=== PATIENT | female | born 1955 | race Caucasian/White ===

== ENCOUNTER 2016-12-07 11:53 | Emergency (ER) | payer BC ==
[~2016-12-07] VITALS: Ht 170.2 cm; Wt 89.0 kg
[2016-12-07 11:58] VITALS: BP 189/102; PULSE 107; RESP 18; TEMP 97.9; O2SAT 95
[2016-12-07 12:01] VITALS: BP 155/113; PULSE 106; RESP 17; TEMP 97.7; O2SAT 98
[2016-12-07] MEDS ORDERED: SODIUM CHLOR 0.9% 1000 ML INJ 1,000 ML IV ONE ×2 (12:09→13:45)
[2016-12-07 12:11] VITALS: RESP 17; O2SAT 98
[2016-12-07] MEDS ORDERED: MECLIZINE HCL 25 MG TAB PO ONE ×2 (12:15→14:00)
[2016-12-07] MEDS ORDERED: ONDANSETRON HCL 4 MG/2 ML VIAL IVP ONE (12:15)
[2016-12-07] MEDS ORDERED: SODIUM CHLORIDE 0.9% FLUSH 10 ML FLUSH IVF PRN (12:15)
--- NOTE | 2016-12-07 12:16 | PD ---
HPI Chief Complaint: GI Complaint Time Seen by Provider: 12:03 Travel History International Travel<30 days: No Contact w/Intl Traveler<30days: No Traveled to known affect area: No History of Present Illness HPI 61-year-old female presents to emergency department with 3 day history of sudden onset dizziness with extreme nausea and vomiting and regular without murmur head. Headache pain is currently 5/10. Blood pressure is noted to be somewhat elevated which is unusual for the patient. Patient denies fever , chills, or diarrhea. Patient states she is kept water down today. She has decreased urine output. Feels dehydrated. Patient denies abdominal pain. Patient states her dizziness is worse with positional change. She has no known drug allergies. PFSH Past Medical History Diminished Hearing: No Respiratory: Yes (BRONCHITIS HX) Tetanus Vaccination: > 5 Years Influenza Vaccination: No ?: Not Menopausal: Yes Past Surgical History Tonsillectomy: Yes Family History Family Breast Cancer: Yes (sister) Family Myocardial Infarction: Yes (mother ) Social History Alcohol Use: No Tobacco Use: Yes (1 pack per day) Substance Use: No Allergies-Medications (Allergen,Severity, Reaction): Coded Allergies: No Known Allergies (Unverified , 12/07/16) Reported Meds & Prescriptions Reported Meds & Active Scripts Active Zofran (Ondansetron HCl) 4 Mg Tab 4 Mg PO Q6HR PRN Meclizine (Meclizine HCl) 25 Mg Tab 25 Mg PO TID PRN 14 Days Review of Systems Except as stated in HPI: all other systems reviewed are Neg General / Constitutional: No: Fever Eyes: No: Visual changes HENT: Positive: Headaches, Vertigo, Lightheadedness, No: Sore Throat, Rhinitis , Rhinorrhea, Congestion, Nosebleed, Neck Stiffness, Neck Pain, Dental Difficulties, Ear Discharge, Earache Cardiovascular: No: Chest Pain or Discomfort Respiratory: No: Cough, Shortness of Breath, Wheezing Gastrointestinal: Positive: Nausea, Vomiting, No: Diarrhea, Abdominal Pain Genitourinary: No: Dysuria Musculoskeletal: No: Pain Skin: No Rash Neurologic: No: Weakness Psychiatric: No: Depression Endocrine: No: Polydipsia Hematologic/Lymphatic: No: Easy Bruising Physical Exam Narrative GENERAL: Patient appears anxious and in mild to moderate distress. SKIN: Warm and dry. Normal color. Decreased turgor with tenting. HEAD: Atraumatic. Normocephalic. EYES: Pupils equal and round. No scleral icterus. No injection or drainage. No obvious nystagmus with ocular motion Tomás maneuvers although the patient feels dizzy with maneuvers. ENT: No nasal bleeding or discharge. Mucous membranes pink and moist. Pharynx is clear. Airway is patent. TMs are clear bilaterally NECK: Trachea midline. No bruits. Range of motion is full and supple. CARDIOVASCULAR: Tachycardic rate and normal rhythm. RESPIRATORY: No accessory muscle use. Clear to auscultation. Breath sounds equal bilaterally. GASTROINTESTINAL: Abdomen soft, non-tender, nondistended. Hepatic and splenic margins not palpable. No CVA tenderness MUSCULOSKELETAL: Extremities without clubbing, cyanosis, or edema. No obvious deformities. NEUROLOGICAL: Awake and alert. No obvious cranial nerve deficits. Motor grossly within normal limits. Five out of 5 muscle strength in the arms and legs. Normal speech. PSYCHIATRIC: Appropriate mood and affect; insight and judgment normal. Data Data Last Documented VS Vital Signs Date Time Temp Pulse Resp B/P (MAP) Pulse Ox O2 Delivery O2 Flow Rate FiO2 12/07/16 13:05 97.8 72 17 140/84 (102) 98 Room Air Orders Orders Electrocardiogram (12/07/16 12:09) Complete Blood Count With Diff (12/07/16 12:09) Comprehensive Metabolic Panel (12/07/16 12:09) Magnesium (Mg) (12/07/16 12:09) Ckmb (Isoenzyme) Profile (12/07/16 12:09) Troponin I (12/07/16 12:09) Act Partial Throm Time (Ptt) (12/07/16 12:09) Prothrombin Time / Inr (Pt) (12/07/16 12:09) Urinalysis - C+S If Indicated (12/07/16 12:09) Chest, Single Ap (12/07/16 12:09) Ct Brain W/O Iv Contrast(Rout) (12/07/16 12:09) Ecg Monitoring (12/07/16 12:09) Iv Access Insert/Monitor (12/07/16 12:09) Oximetry (12/07/16 12:09) Meclizine (Antivert) (12/07/16 12:15) Ondansetron Inj (Zofran Inj) (12/07/16 12:15) Sodium Chloride 0.9% Flush (Ns Flush) (12/07/16 12:15) Sodium Chlor 0.9% 1000 Ml Inj (Ns 1000 M (12/07/16 12:09) Sodium Chlor 0.9% 1000 Ml Inj (Ns 1000 M (12/07/16 13:45) Meclizine (Antivert) (12/07/16 14:00) Labs Laboratory Tests Test 12/07/16 12:00 White Blood Count 11.3 TH/MM3 Red Blood Count 6.39 MIL/MM3 Hemoglobin 18.1 GM/DL Hematocrit 55.1 % Mean Corpuscular Volume 86.2 FL Mean Corpuscular Hemoglobin 28.4 PG Mean Corpuscular Hemoglobin Concent 32.9 % Red Cell Distribution Width 14.1 % Platelet Count 145 TH/MM3 Mean Platelet Volume 12.1 FL Neutrophils (%) (Auto) 63.5 % Lymphocytes (%) (Auto) 29.5 % Monocytes (%) (Auto) 6.0 % Eosinophils (%) (Auto) 0.5 % Basophils (%) (Auto) 0.5 % Neutrophils # (Auto) 7.2 TH/MM3 Lymphocytes # (Auto) 3.3 TH/MM3 Monocytes # (Auto) 0.7 TH/MM3 Eosinophils # (Auto) 0.1 TH/MM3 Basophils # (Auto) 0.1 TH/MM3 CBC Comment AUTO DIFF Differential Comment AUTO DIFF CONFIRMED Prothrombin Time 11.4 SEC Prothromb Time International Ratio 1.0 RATIO Activated Partial Thromboplast Time 27.9 SEC Blood Urea Nitrogen 28 MG/DL Creatinine 0.84 MG/DL Random Glucose 88 MG/DL Total Protein 7.9 GM/DL Albumin 4.3 GM/DL Calcium Level 8.8 MG/DL Magnesium Level 2.0 MG/DL Alkaline Phosphatase 128 U/L Aspartate Amino Transf (AST/SGOT) 19 U/L Alanine Aminotransferase (ALT/SGPT) 32 U/L Total Bilirubin 0.8 MG/DL Sodium Level 138 MEQ/L Potassium Level 3.7 MEQ/L Chloride Level 105 MEQ/L Carbon Dioxide Level 21.9 MEQ/L Anion Gap 11 MEQ/L Estimat Glomerular Filtration Rate 69 ML/MIN Total Creatine Kinase 57 U/L Troponin I LESS THAN 0.02 NG/ML MDM Medical Decision Making Medical Screen Exam Complete: Yes Emergency Medical Condition: Yes Differential Diagnosis Vestibulitis. Positional vertigo. Stroke. Nausea and vomiting. Hypertension. Narrative Course Patient is anxious but otherwise medically stable at time of exam. Labs ordered including CBC, CMP, cardiac panel, and urinalysis CT of the head is ordered. EKG and chest x-ray is ordered. IV access is obtained patient is given thousand milligrams normal saline bolus. Patient is given 25 mg meclizine by mouth as well as 4 mg Zofran IV. EKG shows sinus rhythm with possible left atrial enlargement but no significant ST changes. There is a left anterior fascicular block. EKG reviewed with Dr. Ramon. Chest x-ray is unremarkable for acute process per radiologist. CBC shows leukocytosis of 11.3, hemoglobin of 18.1, hematocrit of 55.1. CMP is unremarkable except for BUN of 28, GFR 69, alkaline phosphatase of 128, troponin is less than 0.02. Electrolytes are normal. Coagulation studies are unremarkable. CT is unremarkable per radiologist. Patient is reassessed and found to be improved but not 100% after 25 mg of meclizine and Zofran and normal saline bolus. Urinalysis is still pending. Patient is given an additional 25 mg meclizine by mouth as well as another 1000 mL normal saline bolus. Patient is ambulated here in the department. Patient is felt medically stable for discharge home with diagnosis of acute vertigo. Patient is treated with meclizine 25 mg 1 tablet every 8 hours when necessary for the next 2 weeks. Patient also given Zofran 4 mg every 6 hours when necessary #20. Patient is to follow-up with her primary care physician as needed. Patient can return to emergency Department with worsening symptoms as necessary. Diagnosis Primary Impression: Vertigo Additional Impression: Nausea & vomiting Qualified Codes: R11.2 - Nausea with vomiting, unspecified Referrals: Primary Care Physician Patient Instructions: General Instructions Additional Instructions: Patient is felt medically stable for discharge home with diagnosis of acute vertigo. Patient is treated with meclizine 25 mg 1 tablet every 8 hours when necessary for the next 2 weeks. Patient also given Zofran 4 mg every 6 hours when necessary #20. Patient is to follow-up with her primary care physician as needed. Patient can return to emergency Department with worsening symptoms as necessary. Med/Other Pt SpecificInfo: Prescription(s) given Scripts Ondansetron (Zofran) 4 Mg Tab 4 MG PO Q6HR Y for NAUSEA OR VOMITING, #20 TAB 0 Refills Prov: Cheryl Ramon MD 12/07/16 Meclizine (Meclizine) 25 Mg Tab 25 MG PO TID Y for VERTIGO for 14 Days, TAB 0 Refills Prov: Cheryl Ramon MD 12/07/16 Condition: Stable Bill Fuentes Dec 07, 2016 12:16
--- NOTE | 2016-12-07 12:36 | PD ---
Physical Exam Date Seen by Provider: Dec 07, 2016 Narrative Patient presents with vertigo Data Data Last Documented VS Vital Signs Date Time Temp Pulse Resp B/P (MAP) Pulse Ox O2 Delivery O2 Flow Rate FiO2 12/07/16 12:11 17 98 Room Air 12/07/16 12:01 97.7 106 Orders Orders Electrocardiogram (12/07/16 12:09) Complete Blood Count With Diff (12/07/16 12:09) Comprehensive Metabolic Panel (12/07/16 12:09) Magnesium (Mg) (12/07/16 12:09) Ckmb (Isoenzyme) Profile (12/07/16 12:09) Troponin I (12/07/16 12:09) Act Partial Throm Time (Ptt) (12/07/16 12:09) Prothrombin Time / Inr (Pt) (12/07/16 12:09) Urinalysis - C+S If Indicated (12/07/16 12:09) Chest, Single Ap (12/07/16 12:09) Ct Brain W/O Iv Contrast(Rout) (12/07/16 12:09) Ecg Monitoring (12/07/16 12:09) Iv Access Insert/Monitor (12/07/16 12:09) Oximetry (12/07/16 12:09) Meclizine (Antivert) (12/07/16 12:15) Ondansetron Inj (Zofran Inj) (12/07/16 12:15) Sodium Chloride 0.9% Flush (Ns Flush) (12/07/16 12:15) Sodium Chlor 0.9% 1000 Ml Inj (Ns 1000 M (12/07/16 12:09) MDM Supervised Visit with KANNAN: Yes Narrative Course I, Dr. Ramon, have reviewed the advance practice practitioner's documentation and am in agreement, met with the patient face to face, made the diagnosis, and the medical decision making was done by me. *My assessment and Findings: Vital Signs Date Time Temp Pulse Resp B/P (MAP) Pulse Ox O2 Delivery O2 Flow Rate FiO2 12/07/16 12:11 17 98 Room Air 12/07/16 12:06 17 12/07/16 12:01 97.7 106 17 155/113 (127) 98 12/07/16 11:58 97.9 107 18 189/102 (131) 95 Patient has good color and does not appear to be in any acute distress. Scripts No Active Prescriptions or Reported Meds Condition: Cheryl Llamas MD Dec 07, 2016 12:35
[2016-12-07 12:40] LABS: AUTOMATED NEUTROPHIL # 7.2 TH/MM3 (1.8-7.7); BASOPHIL # 0.1 TH/MM3 (0-0.2); BASOPHIL % 0.5 % (0.0-2.0); EOSINOPHIL # 0.1 TH/MM3 (0-0.4); EOSINOPHIL % 0.5 % (0.0-4.0); HEMATOCRIT 55.1 % (35.0-46.0); HEMOGLOBIN 18.1 GM/DL (11.6-15.3); LYMPH % 29.5 % (9.0-44.0); LYMPHOCYTE # 3.3 TH/MM3 (1.0-4.8); MEAN CELL VOLUME 86.2 FL (80.0-100.0); MEAN CORPUSCULAR HEMOGLOBIN 28.4 PG (27.0-34.0); MEAN CORPUSCULAR HGB CONC 32.9 % (32.0-36.0); MEAN PLATELET VOLUME 12.1 FL (7.0-11.0); MONOCYTE # 0.7 TH/MM3 (0-0.9); NEUT % 63.5 % (16.0-70.0); PLATELET COUNT 145 TH/MM3 (150-450); RED BLOOD COUNT 6.39 MIL/MM3 (4.00-5.30); RED CELL DISTRIBUTION WIDTH 14.1 % (11.6-17.2); WHITE BLOOD COUNT 11.3 TH/MM3 (4.0-11.0)
[2016-12-07 12:55] LABS: PROTHROMBIN TIME - PATIENT 11.4 SEC (9.8-11.6)
[2016-12-07 12:56] LABS: ALBUMIN 4.3 GM/DL (3.4-5.0); ALT (GPT) 32 U/L (10-53); AST (GOT) 19 U/L (15-37); BICARBONATE 21.9 MEQ/L (21.0-32.0); BLOOD UREA NITROGEN 28 MG/DL (7-18); CALCIUM 8.8 MG/DL (8.5-10.1); CHLORIDE 105 MEQ/L (98-107); CREATININE 0.84 MG/DL (0.50-1.00); GLOMERULAR FILTRATION RATE 69 ML/MIN (>89); GLUCOSE,RANDOM 88 MG/DL (74-106); SODIUM (NA) 138 MEQ/L (136-145)
[2016-12-07 13:01] LABS: ALKALINE PHOSPHATASE 128 U/L (45-117); TOTAL BILIRUBIN ADULT 0.8 MG/DL (0.2-1.0); TOTAL PROTEIN 7.9 GM/DL (6.4-8.2); TROPONIN I LESS THAN 0.02 NG/ML (0.02-0.05)
[2016-12-07 13:05] VITALS: BP 140/84; PULSE 72; RESP 17; TEMP 97.8; O2SAT 98
--- NOTE | 2016-12-07 13:30 | RADRPT ---
EXAM DATE/TIME: 12/07/2016 12:20 [facility] COMPARISON: No previous studies available for comparison. INDICATIONS : Heart Palpitations MEDICAL HISTORY : None. SURGICAL HISTORY : None. ENCOUNTER: Initial ACUITY: 3 days PAIN SCORE: 4/10 LOCATION: Bilateral chest FINDINGS: The heart size is normal. There is some increased density at the right medial base. The left lung is clear. CONCLUSION: Increased density at the right medial base. Some degree of consolidation or atelectasis could have th is appearance. Marcello Avalos MD on December 07, 2016 at 13:27 Board Certified Radiologist. This report was verified electronically.
--- NOTE | 2016-12-07 13:32 | RADRPT ---
EXAM DATE/TIME: 12/07/2016 13:17 [facility] COMPARISON: No previous studies available for comparison. INDICATIONS : Dizziness and vomiting for three days. RADIATION DOSE: 41.02 CTDIvol (mGy) MEDICAL HISTORY : None SURGICAL HISTORY : None. ENCOUNTER: Initial ACUITY: 1 day PAIN SCALE: 0/10 LOCATION: Bilateral head TECHNIQUE: Multiple contiguous axial images were obtained of the head. Using automated exposure control and adj ustment of the mA and/or kV according to patient size, radiation dose was kept as low as reasonably a chievable to obtain optimal diagnostic quality images. DICOM format image data is available electro nically for review and comparison. FINDINGS: CEREBRUM: The ventricles are normal for age. No evidence of midline shift, mass lesion, hemorrhage or acute in farction. No extra-axial fluid collections are seen. POSTERIOR FOSSA: The cerebellum and brainstem are intact. The 4th ventricle is midline. The cerebellopontine angle i s unremarkable. EXTRACRANIAL: The visualized portion of the orbits is intact. SKULL: The calvaria is intact. No evidence of skull fracture. CONCLUSION: Normal examination. Marcello Avalos MD on December 07, 2016 at 13:30 Board Certified Radiologist. This report was verified electronically.
[2016-12-07] MEDS ORDERED: MECL-62 PO (14:01)
[2016-12-07] MEDS ORDERED: ZOFR4TAB PO (14:01)
[2016-12-07 14:14] VITALS: BP 141/86; PULSE 83; RESP 17; TEMP 97.8; O2SAT 98
[2016-12-07 15:23] LABS: BACTERIA, URINE RARE /hpf; BILIRUBIN, URINE NEG (NEG); BLOOD, URINE NEG (NEG); GLUCOSE,URINE NEG (NEG); HYALINE CAST, URINE 6 /lpf (RARE); KETONE, URINE 80 mg/dL (NEG); MUCUS URINE MOD /lpf (OCC); NITRITE,URINE NEG (NEG); PH, URINE 5.5 (5.0-8.5); SQUAMOUS EPITHELIAL CELL URINE 3 /hpf (0-5); URINE COLOR YELLOW (YELLW/STRAW); URINE LEUKOCYTE ESTERASE NEG (NEG)
[2016-12-07 15:30] VITALS: BP 136/81; TEMP 97.8
--- NOTE | 2016-12-07 16:53 | EKG ---
Date Performed: 12/07/2016 Time Performed: 12:23:10 PTAGE: 61 years EKG: Sinus rhythm POSSIBLE LEFT ATRIAL ENLARGEMENT PATTERN CONSISTENT WITH PULMONARY DISEASE POSSIBLE RIGHT VENTRICULA R CONDUCTION DELAY LEFT ANTERIOR FASCICULAR BLOCK ABNORMAL ECG NO PREVIOUS TRACING DOCTOR: Terese Kaplan Interpretating Date/Time 12/07/2016 16:51:43
== END 2016-12-07 15:30 | disposition home or self-care (01) ==
LOC: NEPE 11:53
DX: R42 Dizziness and giddiness (principal); R11.2 Nausea with vomiting, unspecified; R51 Headache; R03.0 Elevated blood-pressure reading, without diagnosis of hypertension; R94.31 Abnormal electrocardiogram [ECG] [EKG]; F17.200 Nicotine dependence, unspecified, uncomplicated; Z87.09 Personal history of other diseases of the respiratory system
CPT/HCPCS: 70450; 71010; 80053; 81001; 82550; 83735; 84484; 85025; 85610; 85730; 93005; 96361; 96374; 99285; J2405; J7030